=== PATIENT | female | born 1955 | race Caucasian/White ===

== ENCOUNTER 2023-06-12 12:58 | Emergency (ER) | payer OTHER ==
[~2023-06-12] VITALS: Ht 160 cm; Wt 69.1 kg
[2023-06-12 13:09] VITALS: TEMP 97.3
[2023-06-12 15:21] VITALS: BP 166/79; PULSE 60
== END 2023-06-12 15:21 | disposition home or self-care (01) ==
LOC: COL.ER 12:58
DX: R39.198 Other difficulties with micturition (principal); M48.04 Spinal stenosis, thoracic region